=== PATIENT | female | born 2000 | race Caucasian/White ===

== ENCOUNTER 2020-10-13 21:37 | Emergency (ER) | payer OTHER ==
[2020-10-14 00:14] LABS: HEMOGLOBIN 16.3 gm/dl (12.3-15.3); RED BLOOD COUNT 5.38 M/UL (4.00-5.10); WHITE BLOOD COUNT 16.5 K/UL (4.5-11.0)
[2020-10-14 00:44] LABS: BUN/CREATININE RATIO 9 (0-10)
== END 2020-10-14 02:00 | disposition home or self-care (01) ==
LOC: ER1 21:37
PROVIDERS: Family Medicine
DX: F41.9 Anxiety disorder, unspecified (principal); Z79.899 Other long term (current) drug therapy
CPT/HCPCS: 80053; 82550; 82553; 83874; 84484; 85025; 93005; 99285

== ENCOUNTER → 2020-12-05 | Outpatient (CLI) | payer OTHER | LOC: HEART 5 14:00 | DX: R00.2 Palpitations (principal) ==

== ENCOUNTER 2021-04-06 00:15 | Emergency (ER) | payer OTHER ==
[2021-04-06] MEDS ORDERED: NORFLEX 100 MG100 MG PO (02:12)
[2021-04-06] MEDS ORDERED: LODINE CAP 300300 MG PO (02:12)
== END 2021-04-06 02:45 | disposition home or self-care (01) ==
LOC: ER1 00:15
DX: S13.4XXA Sprain of ligaments of cervical spine, initial encounter (principal); S23.3XXA Sprain of ligaments of thoracic spine, initial encounter; S43.402A Unspecified sprain of left shoulder joint, initial encounter; V49.40XA Driver injured in collision with unspecified motor vehicles in traffic accident, initial encounter; F17.210 Nicotine dependence, cigarettes, uncomplicated; Y92.410 Unspecified street and highway as the place of occurrence of the external cause
CPT/HCPCS: 72125; 72128; 73030; 99284